=== PATIENT | female | born 1955 | race Two or more races ===

== ENCOUNTER 2021-05-01 02:03 | Inpatient (IN) | payer MEDICARE, MEDICAID ==
[~2021-05-01] VITALS: Ht 160 cm; Wt 147.7 kg
[2021-05-01 12:34] VITALS: BP 105/59
[2021-05-01] MEDS ORDERED: insulin Lispro (HumaLOG) vial - multi-dose SQ SCH (12:35)
[2021-05-01] MEDS ORDERED: MESSAGE TO PHARMACY PO ONE (12:35)
[2021-05-01] MEDS ORDERED: magnesium 2GM in 50ml NS 50 ML IV PRN (12:35)
[2021-05-01] MEDS ORDERED: magnesium 4gm in 100ml NS 100 ML IV PRN (12:35)
[2021-05-01] MEDS ORDERED: mag hydrox/Alum hydrox/simeth 30ml oral suspension PO PRN (12:35)
[2021-05-01] MEDS ORDERED: potassium CL 10mEq/100ml bag 100 ML IV PRN (12:35)
[2021-05-01] MEDS ORDERED: magnesium hydroxide 30ml (MOM) UD suspension PO PRN (12:35)
[2021-05-01] MEDS ORDERED: ondansetron/PF 4mg/2ml inj IV PRN (12:35)
[2021-05-01] MEDS ORDERED: dextrose ORAL solution 15 GM/59 ML bottle PO PRN ×2 (12:35)
[2021-05-01] MEDS ORDERED: magnesium Cl slow-release 64mg tablet PO PRN (12:35)
[2021-05-01] MEDS ORDERED: dextrose 50%-water 50ml dispensing syringe IV PRN ×2 (12:35)
[2021-05-01] MEDS ORDERED: potassium Cl 20 mEq SR tablet PO PRN ×2 (12:35)
[2021-05-01] MEDS ORDERED: glucagon, human recombinant 1mg kit SUBCUT PRN (12:35)
[2021-05-01 15:15] VITALS: BP 111/50
[2021-05-01 15:48] LABS: BASOPHILS # (AUTO) 0.1 X10'3 (0-0.2); BASOPHILS % (AUTO) 0.7 % (0-1); EOSINOPHILS # (AUTO) 0.1 X10'3 (0-0.9); EOSINOPHILS % (AUTO) 1.1 % (0-6); HEMATOCRIT 38.4 % (35.0-45.0); HEMOGLOBIN 12.5 g/dl (12.0-16.0); LYMPHOCYTES # (AUTO) 1.2 X10'3 (1.1-4.8); LYMPHOCYTES % (AUTO) 15.1 % (21-51); MEAN CORPUSCULAR HEMOGLOBIN 27.7 PG (27.0-31.0); MEAN CORPUSCULAR HGB CONC 32.7 g/dL (33.0-36.5); MEAN CORPUSCULAR VOLUME 84.7 FL (78-98); MEAN PLATELET VOLUME 8.1 FL (7.4-10.4); MONOCYTES # (AUTO) 0.4 X10'3 (0-0.9); MONOCYTES % (AUTO) 4.5 % (2-12); NEUTROPHILS # (AUTO) 6.5 X10'3 (1.8-7.7); NEUTROPHILS % (AUTO) 78.6 % (42-75); PLATELET COUNT 258 X10'3 (140-440); RED BLOOD COUNT 4.53 X10'6 (4.20-5.60); RED CELL DISTRIBUTION WIDTH 18.4 % (11.5-14.5); WHITE BLOOD COUNT 8.2 X10'3 (4.5-11.0)
[2021-05-01] MEDS ORDERED: NO HOME MEDS (15:49)
[2021-05-01 15:51] LABS: ALANINE AMINOTRANSFERASE 18 U/L (12-78); ALBUMIN 2.5 G/DL (3.4-5.0); ALBUMIN/GLOBULIN RATIO 0.7 (1.1-1.5); ALKALINE PHOSPHATASE 112 IU/L (46-116); ANION GAP 8 (8-16); ASPARTATE AMINO TRANSFERASE 20 U/L (10-37); BILIRUBIN,TOTAL 0.4 MG/DL (0.1-1.0); BLOOD UREA NITROGEN 8 MG/DL (7-18); BUN/CREATININE RATIO 10.7 (6.6-38.0); CALCIUM 8.4 MG/DL (8.5-10.1); CHLORIDE 104 MMOL/L (99-107); CREATININE 0.75 MG/DL (0.40-0.90); GLUCOSE 138 MG/DL (70-104); MAGNESIUM 1.8 MG/DL (1.5-2.4); POTASSIUM 4.4 MMOL/L (3.5-5.1); SODIUM 142 MMOL/L (135-145); TOTAL CARBON DIOXIDE 29.9 MMOL/L (24-32); TOTAL PROTEIN 5.9 G/DL (6.4-8.2); eGFR 78 ML/MIN
[2021-05-01] MEDS ORDERED: heparin, porcine 5000 units/ml vial SQ SCH (16:00)
[2021-05-01] MEDS: acetaminophen 325mg tablet PO PRN ×3 (16:12→21:44)
[2021-05-01 16:17] LABS: HEMOGLOBIN A1C 6.6 % (4.5-6.2)
[2021-05-01] MEDS ORDERED: heparin 25,000 UNIT/250ml bag 250 ML IV SCH (17:35)
[2021-05-01] MEDS ORDERED: heparin 10,000 units/1 ML INJ IV ONE (17:35)
[2021-05-01 20:00] VITALS: BP 111/58
[2021-05-01] MEDS: K and/or MAG REPLACEMENT MC SCH (20:00)
[2021-05-01] MEDS: insulin glargine (Lantus) pen - multi-dose SQ SCH (21:00)
--- NOTE | 2021-05-01 21:18 | NUR ---
PAGER ID: [phone] MESSAGE: Pt RM 19b JamesMarcella has headache and would like Tylenol if possible SHON [id number]
[2021-05-01] MEDS ORDERED: acetaminophen 325mg tablet PO PRN (21:20)
[2021-05-01] MEDS: docusate sod 100mg capsule PO SCH (21:44)
[2021-05-02] VITALS: BP 110/61
--- NOTE | 2021-05-02 00:10 | NUR ---
Stopped pt heparin drip at 0010 for cardiac ptt draw.
--- NOTE | 2021-05-02 00:35 | NUR ---
Restarted pt heparin drip rate 1000 units per hr no rate change, waiting on lab results.
--- NOTE | 2021-05-02 00:53 | NUR ---
Pt had several orders of cardiac ptt orders placed in advance. Called power transformer assemblerPierce and was told to cancel them and follow protocol.
[2021-05-02] MEDS: heparin 10,000 units/1 ML INJ IV PRN ×2 (01:39→09:38)
--- NOTE | 2021-05-02 01:40 | NUR ---
Pt Cardiac PTT was 32 heparin infusion was raised up 300 units/hr from 1000 units to 1300 units/hr. Pt was given a bolus of 4000 units per protocol.
--- NOTE | 2021-05-02 06:30 | NUR ---
Problems reprioritized. Patient report given, questions answered & plan of care reviewed with RENATA Sims.
[2021-05-02 06:35] LABS: BASOPHILS # (AUTO) 0.1 X10'3 (0-0.2); BASOPHILS % (AUTO) 0.8 % (0-1); EOSINOPHILS # (AUTO) 0.1 X10'3 (0-0.9); EOSINOPHILS % (AUTO) 1.5 % (0-6); HEMATOCRIT 38.7 % (35.0-45.0); HEMOGLOBIN 12.7 g/dl (12.0-16.0); LYMPHOCYTES # (AUTO) 1.8 X10'3 (1.1-4.8); MEAN CORPUSCULAR HEMOGLOBIN 27.6 PG (27.0-31.0); MEAN CORPUSCULAR HGB CONC 32.8 g/dL (33.0-36.5); MEAN PLATELET VOLUME 8.1 FL (7.4-10.4); MONOCYTES # (AUTO) 0.4 X10'3 (0-0.9); MONOCYTES % (AUTO) 5.8 % (2-12); NEUTROPHILS % (AUTO) 67.9 % (42-75); PLATELET COUNT 255 X10'3 (140-440); RED CELL DISTRIBUTION WIDTH 18.2 % (11.5-14.5); WHITE BLOOD COUNT 7.3 X10'3 (4.5-11.0)
[2021-05-02 07:46] LABS: ALANINE AMINOTRANSFERASE 18 U/L (12-78); ALBUMIN 2.6 G/DL (3.4-5.0); ALBUMIN/GLOBULIN RATIO 0.8 (1.1-1.5); ALKALINE PHOSPHATASE 112 IU/L (46-116); ANION GAP 7 (8-16); ASPARTATE AMINO TRANSFERASE 15 U/L (10-37); BILIRUBIN,TOTAL 0.3 MG/DL (0.1-1.0); BLOOD UREA NITROGEN 8 MG/DL (7-18); BUN/CREATININE RATIO 11.9 (6.6-38.0); CALCIUM 8.4 MG/DL (8.5-10.1); CHLORIDE 105 MMOL/L (99-107); CHOL/HDL RATIO 4.5 (0.00-4.99); CHOLESTEROL 167 MG/DL (0-200); CREATININE 0.67 MG/DL (0.40-0.90); GLUCOSE 130 MG/DL (70-104); HDL CHOLESTEROL 37 MG/DL (35-60); LDL CHOLESTEROL 92 MG/DL (50-100); POTASSIUM 4.3 MMOL/L (3.5-5.1); SODIUM 141 MMOL/L (135-145); TOTAL CARBON DIOXIDE 29.2 MMOL/L (24-32); TOTAL PROTEIN 5.7 G/DL (6.4-8.2); TRIGLYCERIDES 185 MG/DL (20-135); eGFR 89 ML/MIN
[2021-05-02] MEDS: K and/or MAG REPLACEMENT MC SCH ×2 (08:00→20:00)
[2021-05-02] MEDS: docusate sod 100mg capsule PO SCH ×2 (08:39→19:38)
--- NOTE | 2021-05-02 12:55 | NUR ---
Malnutrition consult: Pt admit dx acute metabolic encephalopathy per EMR. Pt reports 2-13 lb wt loss per RN malnutrition screen. Pt has severe weakness, non-pitting edema likely due to CHF, no scaled wt this admit or scaled wt hx, and PO 75% avg first two heart healthy/CCHO meals per EMR. Pt was seen by RD and appears WDWN w/ no muscle or fat wasting. Pt lacks minimum two malnutrition criteria at this time. Will monitor for nutrition intervention needs this admit. Addendum: 05/02/21 at [address] Amended: Links added. Addendum: 05/02/21 at [address] PLEASE SEE ABOVE FOR UPDATED NOTE
--- NOTE | 2021-05-02 12:58 | NUR ---
Malnutrition/DM consult: Pt admit dx acute metabolic encephalopathy per EMR. Pt A1c 6.6 and DM education not warranted. Pt reports 2-13 lb wt loss per RN malnutrition screen. Per EMR pt has severe weakness, non-pitting edema possibly due to CHF, no scaled wt this admit or scaled wt hx, and PO 75% avg first two heart healthy/CCHO meals. Pt was seen by RD and director internal audit and appears WDWN w/ no muscle or fat wasting, however pt was loopy and unable to obtain further information about wt and eating hx. Pt lacks minimum two malnutrition criteria at this time. Will monitor for nutrition intervention needs this admit. Addendum: 05/02/21 at [address] Amended: Links added. Addendum: 05/02/21 at [address] I have reviewed and agree with note by [employer]. ANSELMO Lopez
[2021-05-02] MEDS ORDERED: pneumococcal 23-VAL P-sac vacc 25 mcg/0.5ml vial IMVAC ONE ×2 (16:00→16:45)
[2021-05-02] MEDS: acetaminophen 325mg tablet PO PRN (16:52)
--- NOTE | 2021-05-02 17:56 | NUR ---
Miss Ramirez has been assessed as indicted. She has been noted to be both pleasant and cooperative. She is confused as to time and location. She does not always completely follow along with conversations. She is incontinent of bladder and using a purewick. She has not had a BM. She did work with PT today. She states that she has not been out of the bed at home in more that 1 year. She has a wound consult and a social service consult ion place. She has been successfully treated for pain x1 this shift. Addendum: 05/02/21 at 1757 by Quyen Hargrove RN Above note incorrect patient
[2021-05-02 18:00] VITALS: BP 131/78
--- NOTE | 2021-05-02 18:30 | NUR ---
Problems reprioritized. Patient report given, questions answered & plan of care reviewed with NAVJOT YANEZ.
[2021-05-02] MEDS: heparin, porcine 5000 units/ml vial SQ SCH (19:38)
[2021-05-02] MEDS: carVEDilol 3.125mg tablet PO SCH (19:38)
[2021-05-02] MEDS: insulin glargine (Lantus) pen - multi-dose SQ SCH (21:00)
[2021-05-02 22:00] VITALS: BP 122/70
[2021-05-03] MEDS: heparin, porcine 5000 units/ml vial SQ SCH ×3 (00:11→16:42)
[2021-05-03 02:00] VITALS: BP 120/77
[2021-05-03 06:37] LABS: BASOPHILS # (AUTO) 0.1 X10'3 (0-0.2); EOSINOPHILS # (AUTO) 0.1 X10'3 (0-0.9); EOSINOPHILS % (AUTO) 2.1 % (0-6); HEMATOCRIT 37.1 % (35.0-45.0); HEMOGLOBIN 12.2 g/dl (12.0-16.0); LYMPHOCYTES # (AUTO) 1.4 X10'3 (1.1-4.8); LYMPHOCYTES % (AUTO) 25.8 % (21-51); MEAN CORPUSCULAR HGB CONC 32.9 g/dL (33.0-36.5); MEAN PLATELET VOLUME 8.2 FL (7.4-10.4); MONOCYTES # (AUTO) 0.3 X10'3 (0-0.9); MONOCYTES % (AUTO) 5.3 % (2-12); NEUTROPHILS # (AUTO) 3.6 X10'3 (1.8-7.7); NEUTROPHILS % (AUTO) 65.8 % (42-75); PLATELET COUNT 227 X10'3 (140-440); RED BLOOD COUNT 4.36 X10'6 (4.20-5.60); RED CELL DISTRIBUTION WIDTH 18.2 % (11.5-14.5); WHITE BLOOD COUNT 5.5 X10'3 (4.5-11.0)
--- NOTE | 2021-05-03 06:44 | NUR ---
Problems reprioritized. Patient report given, questions answered & plan of care reviewed with Goldie YANEZ.
[2021-05-03 06:47] LABS: ALANINE AMINOTRANSFERASE 15 U/L (12-78); ALBUMIN 2.4 G/DL (3.4-5.0); ALBUMIN/GLOBULIN RATIO 0.8 (1.1-1.5); ALKALINE PHOSPHATASE 104 IU/L (46-116); ANION GAP 7 (8-16); ASPARTATE AMINO TRANSFERASE 14 U/L (10-37); BILIRUBIN,TOTAL 0.2 MG/DL (0.1-1.0); BLOOD UREA NITROGEN 9 MG/DL (7-18); CALCIUM 8.6 MG/DL (8.5-10.1); CHLORIDE 106 MMOL/L (99-107); GLUCOSE 116 MG/DL (70-104); MAGNESIUM 1.8 MG/DL (1.5-2.4); POTASSIUM 4.5 MMOL/L (3.5-5.1); SODIUM 143 MMOL/L (135-145); TOTAL CARBON DIOXIDE 30.3 MMOL/L (24-32); TOTAL PROTEIN 5.4 G/DL (6.4-8.2); eGFR > 90 ML/MIN
[2021-05-03 07:00] VITALS: BP 130/75
[2021-05-03] MEDS: docusate sod 100mg capsule PO SCH ×2 (07:38→20:00)
[2021-05-03] MEDS: lisinopril 2.5mg tablet PO SCH (07:38)
[2021-05-03] MEDS: carVEDilol 3.125mg tablet PO SCH ×2 (07:38→21:19)
[2021-05-03] MEDS: aspirin 81mg, enteric-coated 1 TAB TABLET.DR PO SCH (07:38)
[2021-05-03] MEDS: K and/or MAG REPLACEMENT MC SCH ×2 (08:00→20:00)
[2021-05-03 11:43] VITALS: BP 101/53
[2021-05-03] MEDS: acetaminophen 325mg tablet PO PRN (12:01)
[2021-05-03 15:20] VITALS: BP 94/50
[2021-05-03 20:00] VITALS: BP 111/53
[2021-05-03] MEDS: insulin glargine (Lantus) pen - multi-dose SQ SCH (21:00)
[2021-05-04] MEDS: heparin, porcine 5000 units/ml vial SQ SCH ×3 (00:45→16:00)
[2021-05-04 06:00] VITALS: BP 129/72
[2021-05-04 07:09] LABS: BASOPHILS # (AUTO) 0.1 X10'3 (0-0.2); EOSINOPHILS # (AUTO) 0.1 X10'3 (0-0.9); EOSINOPHILS % (AUTO) 2.4 % (0-6); HEMATOCRIT 35.8 % (35.0-45.0); LYMPHOCYTES % (AUTO) 19.6 % (21-51); MEAN CORPUSCULAR HEMOGLOBIN 27.9 PG (27.0-31.0); MEAN CORPUSCULAR HGB CONC 33.4 g/dL (33.0-36.5); MEAN CORPUSCULAR VOLUME 83.6 FL (78-98); MEAN PLATELET VOLUME 8.1 FL (7.4-10.4); MONOCYTES # (AUTO) 0.2 X10'3 (0-0.9); MONOCYTES % (AUTO) 4.6 % (2-12); NEUTROPHILS # (AUTO) 3.7 X10'3 (1.8-7.7); NEUTROPHILS % (AUTO) 72.4 % (42-75); PLATELET COUNT 216 X10'3 (140-440); RED BLOOD COUNT 4.28 X10'6 (4.20-5.60); WHITE BLOOD COUNT 5.2 X10'3 (4.5-11.0)
[2021-05-04 07:14] LABS: ALANINE AMINOTRANSFERASE 17 U/L (12-78); ALBUMIN 2.6 G/DL (3.4-5.0); ALKALINE PHOSPHATASE 101 IU/L (46-116); ANION GAP 8 (8-16); ASPARTATE AMINO TRANSFERASE 18 U/L (10-37); BILIRUBIN,TOTAL 0.3 MG/DL (0.1-1.0); BLOOD UREA NITROGEN 10 MG/DL (7-18); BUN/CREATININE RATIO 18.9 (6.6-38.0); CALCIUM 8.6 MG/DL (8.5-10.1); CHLORIDE 105 MMOL/L (99-107); CREATININE 0.53 MG/DL (0.40-0.90); GLUCOSE 130 MG/DL (70-104); MAGNESIUM 1.8 MG/DL (1.5-2.4); POTASSIUM 4.2 MMOL/L (3.5-5.1); SODIUM 143 MMOL/L (135-145); TOTAL CARBON DIOXIDE 30.1 MMOL/L (24-32); TOTAL PROTEIN 5.3 G/DL (6.4-8.2); eGFR > 90 ML/MIN
[2021-05-04] MEDS: docusate sod 100mg capsule PO SCH ×2 (07:19→20:53)
[2021-05-04] MEDS: aspirin 81mg, enteric-coated 1 TAB TABLET.DR PO SCH (07:20)
[2021-05-04] MEDS: lisinopril 2.5mg tablet PO SCH (07:21)
[2021-05-04] MEDS: K and/or MAG REPLACEMENT MC SCH ×2 (07:22→20:00)
[2021-05-04] MEDS: carVEDilol 3.125mg tablet PO SCH ×2 (07:25→20:53)
[2021-05-04] MEDS: acetaminophen 325mg tablet PO PRN (07:26)
[2021-05-04 11:00] VITALS: BP 131/70
--- NOTE | 2021-05-04 14:28 | NUR ---
Pt and spouse states leaving and they are going home-Against Medical Advice. came to the desk wanting discharge papers now. Patient agreed. Pt states she can care for herself at the home with home Oxygen..Text paged Dr. Sanchez.Awaiting orders.
[2021-05-04] MEDS ORDERED: FURO40TA4 PO (14:59)
[2021-05-04] MEDS ORDERED: LISI2.5T14 PO (14:59)
[2021-05-04] MEDS ORDERED: METF-1203 PO (14:59)
[2021-05-04] MEDS ORDERED: ASPI-1071 PO (14:59)
[2021-05-04] MEDS ORDERED: COR3.125T PO (14:59)
--- NOTE | 2021-05-04 15:52 | NUR ---
Patient discharged. Discharge teaching/instruction/prescription given, IV access removed. telemetry discontinued.Pt unable to get in the w/c with [id number] from bed. Pt unable to sit up at bedside to transfer to chair. Wt >500lbs. states he's unable to help. Spouse states unable to transfer pt from bed to w/c or car to inside home.Pt states she hasn't been out of bed in 2yrs & haven't stood up in over a year. Patient and spouse refuses ambulance service. MD notified. Addendum: 05/04/21 at 2878 by Alison Rowe Traveler RENATA Notified Spouse and patient that due to transportation, discharge possibly Pending, Left Voice mail for @[phone] and faxed paged message to regarding transportation. Awaiting return call regarding transportation.Charge Nurse Aldo aware of situation and CN spoke with patient and spouse.Spouse adament about leaving this pm, Spouse states calling to arrange discharge himself for home transportation this pm. Pt discharged per .
[2021-05-04 18:00] VITALS: BP 108/72
[2021-05-04] MEDS: insulin glargine (Lantus) pen - multi-dose SQ SCH (21:00)
[2021-05-05] VITALS: BP 138/73
[2021-05-05] MEDS: heparin, porcine 5000 units/ml vial SQ SCH ×2 (00:48→07:55)
[2021-05-05 06:00] VITALS: BP 128/68
[2021-05-05] MEDS: docusate sod 100mg capsule PO SCH (07:47)
[2021-05-05 07:48] VITALS: BP_SYST 128
[2021-05-05] MEDS: aspirin 81mg, enteric-coated 1 TAB TABLET.DR PO SCH (07:48)
[2021-05-05] MEDS: lisinopril 2.5mg tablet PO SCH (07:48)
[2021-05-05] MEDS: carVEDilol 3.125mg tablet PO SCH (07:49)
[2021-05-05 08:23] LABS: BASOPHILS % (AUTO) 0.8 % (0-1); EOSINOPHILS # (AUTO) 0.1 X10'3 (0-0.9); EOSINOPHILS % (AUTO) 2.3 % (0-6); HEMATOCRIT 38.2 % (35.0-45.0); HEMOGLOBIN 12.3 g/dl (12.0-16.0); LYMPHOCYTES # (AUTO) 0.9 X10'3 (1.1-4.8); LYMPHOCYTES % (AUTO) 19.1 % (21-51); MEAN CORPUSCULAR HEMOGLOBIN 27.4 PG (27.0-31.0); MEAN CORPUSCULAR HGB CONC 32.2 g/dL (33.0-36.5); MEAN CORPUSCULAR VOLUME 84.9 FL (78-98); MEAN PLATELET VOLUME 8.4 FL (7.4-10.4); MONOCYTES # (AUTO) 0.3 X10'3 (0-0.9); MONOCYTES % (AUTO) 5.6 % (2-12); NEUTROPHILS # (AUTO) 3.5 X10'3 (1.8-7.7); NEUTROPHILS % (AUTO) 72.2 % (42-75); PLATELET COUNT 226 X10'3 (140-440); RED CELL DISTRIBUTION WIDTH 18.4 % (11.5-14.5); WHITE BLOOD COUNT 4.9 X10'3 (4.5-11.0)
[2021-05-05 08:42] LABS: ALANINE AMINOTRANSFERASE 20 U/L (12-78); ALBUMIN 2.6 G/DL (3.4-5.0); ALBUMIN/GLOBULIN RATIO 0.9 (1.1-1.5); ALKALINE PHOSPHATASE 101 IU/L (46-116); ANION GAP 10 (8-16); ASPARTATE AMINO TRANSFERASE 22 U/L (10-37); BILIRUBIN,TOTAL 0.3 MG/DL (0.1-1.0); BLOOD UREA NITROGEN 10 MG/DL (7-18); BUN/CREATININE RATIO 18.5 (6.6-38.0); CALCIUM 8.2 MG/DL (8.5-10.1); CHLORIDE 103 MMOL/L (99-107); CREATININE 0.54 MG/DL (0.40-0.90); GLUCOSE 120 MG/DL (70-104); MAGNESIUM 1.7 MG/DL (1.5-2.4); POTASSIUM 4.3 MMOL/L (3.5-5.1); SODIUM 141 MMOL/L (135-145); TOTAL CARBON DIOXIDE 28.5 MMOL/L (24-32); TOTAL PROTEIN 5.4 G/DL (6.4-8.2); eGFR > 90 ML/MIN
--- NOTE | 2021-05-05 13:40 | NUR ---
Spoke with Tamera MCINTOSH this am regarding patient discharge for home this am. Tamera MCINTOSH states will arrange transportation. Pt and spouse made aware transportation plans. Discharge Instruction/Teaching/Prescriptions and meds located in pharmacy and belongings given to patient. NO IV access or Telemetry on. Patient discharge to home via stretcher and ambulance service team, spouse accompanied.No questions or concerns prior.
== END 2021-05-05 12:45 | disposition left against medical advice (07) | DRG 70 ==
LOC: MED 3N 11:15
PROVIDERS: ADMIT Internal Medicine; ATTEND Internal Medicine
DX: G93.41 Metabolic encephalopathy (principal); I50.23 Acute on chronic systolic (congestive) heart failure; Z68.43 Body mass index [BMI] 50.0-59.9, adult; E11.9 Type 2 diabetes mellitus without complications; E66.01 Morbid (severe) obesity due to excess calories; E78.5 Hyperlipidemia, unspecified; R53.1 Weakness; Z20.822 Contact with and (suspected) exposure to COVID-19; F32.A Depression, unspecified; Z74.01 Bed confinement status; Z87.891 Personal history of nicotine dependence; Z83.49 Family history of other endocrine, nutritional and metabolic diseases
CPT/HCPCS: 36415; 80053; 80061; 82948; 83036; 83605; 83735; 83880; 84484; 85025; 85730; 87040; 87081; 87635; 90732; 97110; 97162; 97530; G0378; J1644; J1815

== ENCOUNTER 2022-10-22 12:24 | Emergency (ER) | payer MEDICARE, MEDICAID ==
[~2022-10-22] VITALS: Ht 157.5 cm; Wt 166.0 kg
[~2022-10-22 12:24] MED LIST: ASPI-1071 PO; COR3.125T PO; LISI2.5T14 PO
[2022-10-22 12:47] LABS: BASOPHILS % (AUTO) 0.7 % (0-1); EOSINOPHILS # (AUTO) 0.1 X10'3 (0-0.9); EOSINOPHILS % (AUTO) 1.3 % (0-6); HEMOGLOBIN 9.7 g/dl (12.0-16.0); LYMPHOCYTES % (AUTO) 13.8 % (21-51); MEAN CORPUSCULAR HEMOGLOBIN 26.2 PG (27.0-31.0); MEAN CORPUSCULAR HGB CONC 31.4 g/dL (33.0-36.5); MEAN CORPUSCULAR VOLUME 83.7 FL (78-98); MEAN PLATELET VOLUME 8.2 FL (7.4-10.4); MONOCYTES # (AUTO) 0.4 X10'3 (0-0.9); MONOCYTES % (AUTO) 5.4 % (2-12); NEUTROPHILS # (AUTO) 5.5 X10'3 (1.8-7.7); NEUTROPHILS % (AUTO) 78.8 % (42-75); PLATELET COUNT 223 X10'3 (140-440); RED BLOOD COUNT 3.71 X10'6 (4.20-5.60); RED CELL DISTRIBUTION WIDTH 19.9 % (11.5-14.5)
[2022-10-22] MEDS ORDERED: iohexol 350MG/ML 100ml bottle IV ONE (12:59)
[2022-10-22 13:01] LABS: APTT 29 SECONDS (22-32)
[2022-10-22 13:21] LABS: ALANINE AMINOTRANSFERASE 9 U/L (12-78); ALBUMIN 1.7 G/DL (3.4-5.0); ALBUMIN/GLOBULIN RATIO 0.4 (1.1-1.5); ALKALINE PHOSPHATASE 123 IU/L (46-116); ANION GAP 1 (8-16); ASPARTATE AMINO TRANSFERASE 15 U/L (10-37); BILIRUBIN,TOTAL 0.2 MG/DL (0.1-1.0); BLOOD UREA NITROGEN 12 MG/DL (7-18); BUN/CREATININE RATIO 22.2 (10.0-20.0); CALCIUM 8.4 MG/DL (8.5-10.1); CHLORIDE 98 MMOL/L (99-107); CREATININE 0.54 MG/DL (0.40-0.90); GLUCOSE 202 MG/DL (70-104); POTASSIUM 4.9 MMOL/L (3.5-5.1); SODIUM 135 MMOL/L (135-145); TOTAL CARBON DIOXIDE 36.2 MMOL/L (24-32); TOTAL PROTEIN 6.3 G/DL (6.4-8.2); eGFR > 90 ML/MIN
--- NOTE | 2022-10-22 14:14 | NUR ---
CALL FROM QUINTON YANEZ AT [facility] WHO STATED PT HAD A UA PERFORMED THIS AM SHIFT. PRELIM RESULTS REAVEAL C&S IS INDICATED. QUINTON STATED THEY WILL BE STARTING ABX WHEN PT RETURNS. MD JI NOTIFIED.
--- NOTE | 2022-10-22 16:47 | NUR ---
REPORT CALLED TO [facility] CHARGE NURSE ANA. PT PWNDING TRANSPORT BACK TO [facility] VIA [facility] AT APROX 1630. CRN VRBALIZED UNDERSTANDING AND HAD NO FURTHER QUESTIONS. WILL CONT TO MONITOR UNTIL DC/ TRANSPORT ARRIVES.
[2022-10-22 17:37] VITALS: BP 96/63; PULSE 86; RESP 18; TEMP 98.2; O2SAT 98
== END 2022-10-22 17:42 ==
LOC: ER 12:24
DX: G93.49 Other encephalopathy (principal); E11.9 Type 2 diabetes mellitus without complications; F32.A Depression, unspecified; Z79.899 Other long term (current) drug therapy; Z79.1 Long term (current) use of non-steroidal anti-inflammatories (NSAID)
CPT/HCPCS: 36415; 70450; 70496; 70498; 71045; 80053; 83880; 84145; 84484; 85025; 85610; 85730; 93005; 99285; J3490; Q9967